=== PATIENT | female | born 1960 | race Caucasian/White ===

== ENCOUNTER → 2016-09-15 | Outpatient (CLI) | payer BC ==
[~2016-09-15] MED LIST: ASPIRIN 81M81 MG/TA2 PO; EPI-PEN1 MG/ML MR; KLONOPIN 0.5MG0.5 MG PO; MIRTAZAPINE7.5 MG PO; PREDNISONE10 MG PO; ZOCOR 20MG20 MG PO; [UNRECOGNIZED DRUG - OTHER] PO
== END ==
LOC: MC.RAD 15:48
DX: Z12.31 Encounter for screening mammogram for malignant neoplasm of breast (principal)

== ENCOUNTER → 2018-12-29 | Outpatient (CLI) | payer OTHER | LOC: MC.RAD 08:50 | DX: Z12.31 Encounter for screening mammogram for malignant neoplasm of breast (principal); Z98.82 Breast implant status ==

== ENCOUNTER → 2019-08-25 | Outpatient (CLI) | payer BC ==
[~2019-08-25] VITALS: Ht 170.2 cm; Wt 64.4 kg
[~2019-08-25] MED LIST changes: +ULTRAM 50MG TAB50 MG PO; +VOLTAREN 75 DR75 MG PO; +XANAX .25M0.25 MG/TA PO
[2019-08-25 09:25] VITALS: BP 142/97; PULSE 81
[2019-08-25 10:03] VITALS: BP 138/91; PULSE 75
--- NOTE | 2019-08-25 10:35 | NUR ---
pt was taken to front lobby in wheelchair. brought car up to door. pt able to enter on her own
== END ==
LOC: COL.RAD 08-15 13:15
DX: M51.26 Other intervertebral disc displacement, lumbar region (principal)
CPT/HCPCS: J3301

== ENCOUNTER → 2020-01-04 | Outpatient (CLI) | payer BC | LOC: MC.RAD 08:52 | DX: Z12.31 Encounter for screening mammogram for malignant neoplasm of breast (principal); Z98.82 Breast implant status ==

== ENCOUNTER 2020-02-25 12:13 | Emergency (ER) | payer BC ==
[~2020-02-25] VITALS: Ht 167.6 cm; Wt 61.4 kg
[2020-02-25 12:31] VITALS: TEMP 98.1
[2020-02-25] MEDS ORDERED: PERC2.5TAB (12:46)
[2020-02-25 14:24] LABS: BASO # 0.1 (0.0-0.2); BASO % 0.7 % (0.0-2.0); EOS # 0.1 (0.0-0.7); EOS % 0.7 % (0-4.0); GRAN # 8.3 (1.4-6.5); GRAN % 85.2 % (42.2-75.2); HEMATOCRIT 34.1 % (37.0-47.0); HEMOGLOBIN 11.5 g/dl (12.5-16.0); LYMPH # 0.7 (1.2-3.4); LYMPH % 7.5 % (20.0-51.0); MEAN CELL VOLUME 94 fl (80.0-100.0); MEAN CORPUSCULAR HEMOGLOBIN 32 pg (27.0-31.0); MEAN CORPUSCULAR HGB CONC 34 g/dl (33.0-37.0); MEAN PLATELET VOLUME 8.6 fl (7.4-10.4); MONO # 0.5 (0.1-0.6); MONO % 5.4 % (1.7-9.3); PLATELET COUNT 241 K/mm3 (130-400); RED BLOOD COUNT 3.62 M/mm3 (4.10-5.30); REDCELL DISTRIBUTION WIDTH-CV 11.6 % (11.5-14.5)
[2020-02-25] MEDS ORDERED: DECADRON 4MG TAB4 MG PO (14:30)
[2020-02-25 14:32] LABS: ALBUMIN 4.2 gm/dL (3.5-5.0); BILIRUBIN,TOTAL 0.6 mg/dL (0.0-1.0); CALCIUM 8.6 mg/dL (8.4-10.2); CREATININE, serum 0.77 (0.52-1.25); POTASSIUM 4.9 mmol/L (3.4-5.0); TOTAL PROTEIN 7.4 gm/dL (6.4-8.2)
[2020-02-25 15:05] VITALS: BP 126/79; PULSE 85
== END 2020-02-25 15:32 | disposition home or self-care (01) ==
LOC: COL.ER 12:13
PROVIDERS: Emergency Medicine
DX: T44.5X1A Poisoning by predominantly beta-adrenoreceptor agonists, accidental (unintentional), initial encounter (principal); R42 Dizziness and giddiness; T63.441A Toxic effect of venom of bees, accidental (unintentional), initial encounter; R53.81 Other malaise; Z88.6 Allergy status to analgesic agent; Z88.1 Allergy status to other antibiotic agents
CPT/HCPCS: J1720; J7030

== ENCOUNTER 2020-03-17 17:06 | Emergency (ER) | payer BC ==
[~2020-03-17] VITALS: Ht 170.2 cm; Wt 61.4 kg
[~2020-03-17 17:06] MED LIST changes: +DECADRON 4MG TAB4 MG PO; +PERC2.5TAB
[2020-03-17 17:20] VITALS: TEMP 98.1
[2020-03-17 18:34] LABS: BASO % 0.5 % (0.0-2.0); EOS # 0.2 (0.0-0.7); EOS % 3.2 % (0-4.0); GRAN # 3.5 (1.4-6.5); GRAN % 62.7 % (42.2-75.2); HEMOGLOBIN 11.7 g/dl (12.5-16.0); LYMPH # 1.2 (1.2-3.4); LYMPH % 20.9 % (20.0-51.0); MEAN CELL VOLUME 95 fl (80.0-100.0); MEAN CORPUSCULAR HEMOGLOBIN 32 pg (27.0-31.0); MEAN CORPUSCULAR HGB CONC 34 g/dl (33.0-37.0); MONO # 0.7 (0.1-0.6); MONO % 12.3 % (1.7-9.3); PLATELET COUNT 247 K/mm3 (130-400); RED BLOOD COUNT 3.65 M/mm3 (4.10-5.30); REDCELL DISTRIBUTION WIDTH-CV 11.8 % (11.5-14.5)
[2020-03-17 18:39] LABS: HEMATOCRIT 34.7 % (37.0-47.0)
[2020-03-17] MEDS ORDERED: PREDNISONE20 MG PO (19:12)
[2020-03-17 20:04] VITALS: BP 149/100; PULSE 79
== END 2020-03-17 20:00 | disposition home or self-care (01) ==
LOC: COL.ER 17:06
PROVIDERS: Emergency Medicine
DX: T63.461A Toxic effect of venom of wasps, accidental (unintentional), initial encounter (principal); S51.851A Open bite of right forearm, initial encounter; Z88.6 Allergy status to analgesic agent; Z88.1 Allergy status to other antibiotic agents
CPT/HCPCS: J1200; J2930; J7030; J7512

== ENCOUNTER → 2021-01-17 | Outpatient (CLI) | payer BC ==
[~2021-01-17] MED LIST changes: +PREDNISONE20 MG PO
== END ==
LOC: MC.RAD 09:26
DX: Z12.31 Encounter for screening mammogram for malignant neoplasm of breast (principal); N64.89 Other specified disorders of breast

== ENCOUNTER → 2022-01-21 | Outpatient (CLI) | payer BC | LOC: MC.RAD 09:23 | DX: Z12.31 Encounter for screening mammogram for malignant neoplasm of breast (principal) ==

== ENCOUNTER → 2022-02-04 | Outpatient (CLI) | payer BC | LOC: COL.RAD 09:49 | DX: M19.071 Primary osteoarthritis, right ankle and foot (principal) ==

== ENCOUNTER → 2023-06-15 | Outpatient (CLI) | payer BC ==
[2005-08-11 16:49] VITALS: TEMP 100.8
== END ==
LOC: COL.RAD 08:58
DX: M79.671 Pain in right foot (principal)

== ENCOUNTER → 2024-03-13 | Outpatient (CLI) | payer BC ==
[2005-08-11 16:49] VITALS: BP 124/68; PULSE 83; TEMP 100.8
== END ==
LOC: MC.RAD 14:22
DX: Z12.31 Encounter for screening mammogram for malignant neoplasm of breast (principal)